=== PATIENT | male | born 1965 | race Caucasian/White ===

== ENCOUNTER 2025-02-05 13:47 | Outpatient (CLI) | payer BC | END 2025-02-05 13:48 | disposition home or self-care (01) | LOC: ULT 13:47 | PROVIDERS: ATTEND Internal Medicine Gastroenterology | DX: Z12.11 Encounter for screening for malignant neoplasm of colon (principal); Z12.12 Encounter for screening for malignant neoplasm of rectum; R10.13 Epigastric pain; K76.89 Other specified diseases of liver; N13.30 Unspecified hydronephrosis | CPT/HCPCS: 76700; 93976 ==